=== PATIENT | female | born 1990 | race Caucasian/White ===

== ENCOUNTER 2016-08-21 17:04 | Emergency (ER) | payer OTHER ==
[~2016-08-21] VITALS: Ht 162.6 cm; Wt 97.6 kg
[~2016-08-21 17:04] MED LIST: AMOXICILLIN500 M1 PO; AMOXICILLIN500 MG PO; AMOXICILLIN875 MG PO; ATARAX,VISTARIL25 MG PO; BACTRIM,SEPT1 TABLET PO; BENADRYL50 MG PO; CHROMAGEN,1 CAPSULE PO; CIPRO500 MG PO; CITRATE OF MAG296 ML PO; CLINDAMYCIN HC300 MG PO; CLONAZEPAM0.5 MG PO; DILAUDID2 MG PO; DOLOPHINE HCL10 MG PO; Dilaudid PO; FERATE240 M1 PO; FLAGYL500 MG PO; FLEXERIL10 MG PO; FLINTSTONES M100 MCG PO; FLONASE16 G1 BOTH NARES; HYDROCODON-ACE1 EAC7 PO; HYDROXYZINE HCL50 MG PO; IBUPROFEN600 MG PO; IBUPROFEN800 MG PO; IRON325 M1 PO; KLONOPIN0.5 M1 PO; LORCET 5-325 M1 EACH PO; METHADONE HCL40 MG PO; METHADONE10 MG PO; METHADOSE10 MG/1 ML PO; METHADOSE40 MG PO; METOPROLOL SUCC25 MG PO; METOPROLOL TART25 MG PO; MIRALAX17 GM PO; MOTRIN400 MG PO; MOTRIN600 MG PO; MOTRIN800 MG PO; Motrin PO; NAPROSYN500 MG PO; ONDANSETRON ODT4 MG PO; PAXIL CR25 MG PO; PAXIL20 MG PO; PEN-VEE K,VEET500 MG PO; PEPCID20 MG PO; PERCOCET 10/1 TABLET PO; PERCOCET 5/31 TABLET PO; PREDNISONE20 MG; PREDNISONE50 MG PO; PRENATAL VITAM1 EAC1 PO; PYRIDIUM200 MG PO; TESSALON PERLE100 MG PO; TOPROL XL100 MG PO; TOPROL XL25 MG PO; TOPROL XL50 MG PO; TUMS500 MG PO; TYLENOL W/COD1 COMBO PO; ULTRAM50 MG PO; VALIUM2 MG PO; VANCOCIN HCL125 MG PO; VENTOLIN HFA18 GM IH; VICODIN,LORT1 TABLET PO; ZITHROMAX Z-PA250 MG PO; ZITHROMAX500 MG PO; ZOFRAN ODT4 MG PO; ZOFRAN4 MG PO; ZYRTEC10 M2 PO; [UNRECOGNIZED DRUG - OTHER] PO
[2016-08-21 18:28] LABS: CHLORIDE 105 mEq/L (99-109); POTASSIUM 3.7 mEq/L (3.7-5.4); SODIUM 142 mEq/L (136-147)
[2016-08-21 18:30] LABS: ADD MIUA? YES; BILIRUBIN NEGATIVE; BLOOD TRACE; COLOR DK YELLOW ((YELLOW)); GLUCOSE (STRIP) NEGATIVE; KETONES NEGATIVE; LEUKOCYTES NEGATIVE; NITRITE NEGATIVE; PH, URINE 5.5 (5-8); PROTEIN (STRIP) NEGATIVE; SPECIFIC GRAVITY 1.026 (1.000-1.030)
[2016-08-21 18:31] LABS: GLUCOSE 95 mg/dL (70-99)
[2016-08-21 18:32] LABS: ANION GAP 8 MEQ/L (2-14); TOTAL BILIRUBIN 0.5 mg/dL (0.0-1.0)
[2016-08-21 18:34] LABS: ALKALINE PHOSPHATASE 88 IU/L (3-129); GFR ESTIMATE (CALCULATED) > 59 mL/min/
[2016-08-21 18:35] LABS: UREA NITROGEN (BUN) 5 mg/dL (9-23)
[2016-08-21 18:36] LABS: HEMATOCRIT 34.7 % (36.0-46.0); MCH 25.8 PG (29.0-34.0); MCHC 33.1 G/DL (30.0-36.0); MEAN PLAT.VOLUME 10.5 uM^3 (9.5-12.4); PLATELET COUNT 132 K/uL (156-360); RBC DIS.WIDTH-CV 13.8 % (11.8-14.6); RBC DIS.WIDTH-SD 39.4 % (39-53); RED BLOOD COUNT 4.45 M/uL (3.80-5.20); WHITE BLOOD COUNT 4.4 K/uL (4.1-10.2)
[2016-08-21 18:48] LABS: QUANTITATIVE HCG < 4.0 MIU/ML
[2016-08-21 18:53] LABS: BACTERIA RARE /HPF; CASTS NONE SEEN /LPF; CRYSTALS NONE SEEN; EPITHELIAL CELLS 1+ /HPF; MUCUS NONE SEEN /LPF; RED BLOOD CELLS RARE /HPF (0-5); UCUL ADDED? NO; WHITE BLOOD CELLS NONE SEEN /HPF (0-5)
[2016-08-21 20:46] VITALS: BP 113/71
== END 2016-08-21 20:50 | disposition home or self-care (01) ==
LOC: EME 17:04
DX: R10.30 Lower abdominal pain, unspecified (principal); K59.00 Constipation, unspecified; Z88.6 Allergy status to analgesic agent; Z88.1 Allergy status to other antibiotic agents
CPT/HCPCS: 74020; 80053; 81003; 84702; 85027; 99281; 99285

== ENCOUNTER 2016-10-09 11:23 | Emergency (ER) | payer OTHER ==
[~2016-10-09] VITALS: Ht 162.6 cm; Wt 98.1 kg
[2016-10-09 12:49] LABS: ADD MIUA? NO; BILIRUBIN NEGATIVE; BLOOD NEGATIVE; COLOR YELLOW ((YELLOW)); GLUCOSE (STRIP) NEGATIVE; KETONES NEGATIVE; LEUKOCYTES NEGATIVE; NITRITE NEGATIVE; PROTEIN (STRIP) 30; SPECIFIC GRAVITY 1.024 (1.000-1.030); UCUL ADDED? NO
[2016-10-09 12:56] LABS: HEMATOCRIT 35.4 % (36.0-46.0); MCH 25.6 PG (29.0-34.0); MCHC 32.8 G/DL (30.0-36.0); MEAN PLAT.VOLUME 9.6 uM^3 (9.5-12.4); PLATELET COUNT 201 K/uL (156-360); RBC DIS.WIDTH-CV 13.4 % (11.8-14.6); RBC DIS.WIDTH-SD 37.3 % (39-53); RED BLOOD COUNT 4.54 M/uL (3.80-5.20); WHITE BLOOD COUNT 6.4 K/uL (4.1-10.2)
[2016-10-09 13:06] LABS: CHLORIDE 105 mEq/L (99-109); POTASSIUM 3.8 mEq/L (3.7-5.4); SODIUM 138 mEq/L (136-147)
[2016-10-09 13:08] LABS: GLUCOSE 86 mg/dL (70-99)
[2016-10-09 13:09] LABS: ANION GAP 9 MEQ/L (2-14)
[2016-10-09 13:10] LABS: TOTAL BILIRUBIN 0.4 mg/dL (0.0-1.0)
[2016-10-09 13:11] LABS: ALKALINE PHOSPHATASE 81 IU/L (3-129)
[2016-10-09 13:12] LABS: GFR ESTIMATE (CALCULATED) > 59 mL/min/
[2016-10-09 13:13] LABS: UREA NITROGEN (BUN) 5 mg/dL (9-23)
[2016-10-09 13:26] LABS: QUANTITATIVE HCG < 4.0 MIU/ML
[2016-10-09 14:19] VITALS: BP 120/80
== END 2016-10-09 14:19 | disposition home or self-care (01) ==
LOC: EME 11:23
DX: R10.9 Unspecified abdominal pain (principal); K21.9 Gastro-esophageal reflux disease without esophagitis; Z90.710 Acquired absence of both cervix and uterus
CPT/HCPCS: 80053; 81003; 84702; 85027; 99281; 99283

== ENCOUNTER 2016-11-27 15:26 | Emergency (ER) | payer OTHER ==
[~2016-11-27] VITALS: Ht 162.6 cm; Wt 100.2 kg
[2016-11-27] MEDS ORDERED: AUGMENTIN875 MG PO (20:23)
[2016-11-27] MEDS ORDERED: FLONASE16 G1 BOTH NARES (20:23)
[2016-11-27 20:33] VITALS: BP 111/63
== END 2016-11-27 20:36 | disposition home or self-care (01) ==
LOC: EME 15:26
DX: J01.90 Acute sinusitis, unspecified (principal); R51 Headache; Z88.6 Allergy status to analgesic agent
CPT/HCPCS: 70450; 99281; 99283

== ENCOUNTER 2017-01-06 03:56 | Emergency (ER) | payer OTHER ==
[~2017-01-06] VITALS: Ht 162.6 cm; Wt 97.7 kg
[~2017-01-06 03:56] MED LIST changes: +AUGMENTIN875 MG PO
[2017-01-06 05:28] LABS: EOSINOPHIL (%) 5.7 % (0-5); EOSINOPHIL COUNT 0.3 K/uL (0-0.3); HEMATOCRIT 35.9 % (36.0-46.0); INSTRUMENT ABS NEUTROPHIL CT 2.3 K/uL; LYMPHOCYTE COUNT 1.5 K/uL (1.0-2.8); MCH 26.6 PG (29.0-34.0); MCHC 33.4 G/DL (30.0-36.0); MCV 79.6 FL (83-99); MEAN PLAT.VOLUME 10.4 uM^3 (9.5-12.4); MONOCYTE COUNT 0.3 K/uL (0-0.8); NEUTROPHIL (%) 52.3 % (45-76); NEUTROPHIL COUNT 2.3 K/uL (1.8-6.4); PLATELET COUNT 146 K/uL (156-360); RBC DIS.WIDTH-CV 12.9 % (11.8-14.6); RBC DIS.WIDTH-SD 36.2 % (39-53); RED BLOOD COUNT 4.51 M/uL (3.80-5.20); WHITE BLOOD COUNT 4.4 K/uL (4.1-10.2)
[2017-01-06 05:38] LABS: CHLORIDE 103 mEq/L (99-109); POTASSIUM 3.8 mEq/L (3.7-5.4); SODIUM 138 mEq/L (136-147)
[2017-01-06 05:40] LABS: GLUCOSE 92 mg/dL (70-99)
[2017-01-06 05:42] LABS: ANION GAP 7 MEQ/L (2-14); TOTAL BILIRUBIN 0.6 mg/dL (0.0-1.0)
[2017-01-06 05:44] LABS: ALKALINE PHOSPHATASE 92 IU/L (3-129); GFR ESTIMATE (CALCULATED) > 59 mL/min/
[2017-01-06 05:45] LABS: UREA NITROGEN (BUN) 9 mg/dL (9-23)
[2017-01-06 07:14] VITALS: BP 113/69
== END 2017-01-06 07:15 | disposition home or self-care (01) ==
LOC: EME → EDBD 03:56 → EME 07:15
PROVIDERS: Emergency Medicine
DX: K59.00 Constipation, unspecified (principal); R10.30 Lower abdominal pain, unspecified; M79.7 Fibromyalgia; K21.9 Gastro-esophageal reflux disease without esophagitis; F90.9 Attention-deficit hyperactivity disorder, unspecified type
CPT/HCPCS: 74176; 80053; 85025; 99281; 99284

== ENCOUNTER 2017-02-27 03:23 | Emergency (ER) | payer OTHER ==
[~2017-02-27] VITALS: Ht 162.6 cm; Wt 97.8 kg
[2017-02-27] MEDS ORDERED: PREPARATION H C51 GM PR (04:17)
[2017-02-27] MEDS ORDERED: COLACE100 MG PO (04:17)
[2017-02-27 04:53] VITALS: BP 117/79
== END 2017-02-27 04:53 | disposition home or self-care (01) ==
LOC: EXP 03:23 → EME 03:23 → EXP 04:53
DX: K60.0 Acute anal fissure (principal); K59.00 Constipation, unspecified; Z90.49 Acquired absence of other specified parts of digestive tract; Z90.710 Acquired absence of both cervix and uterus
CPT/HCPCS: 99281; 99283

== ENCOUNTER 2017-03-18 17:43 | Emergency (ER) | payer OTHER ==
[~2017-03-18] VITALS: Ht 162.6 cm; Wt 97.8 kg
[~2017-03-18 17:43] MED LIST changes: +COLACE100 MG PO; +PREPARATION H C51 GM PR
[2017-03-18 18:39] LABS: HEMATOCRIT 34.9 % (36.0-46.0); MCH 27.1 PG (29.0-34.0); MCHC 33.5 G/DL (30.0-36.0); MCV 80.8 FL (83-99); MEAN PLAT.VOLUME 10.3 uM^3 (9.5-12.4); PLATELET COUNT 136 K/uL (156-360); RBC DIS.WIDTH-CV 12.9 % (11.8-14.6); RBC DIS.WIDTH-SD 37.4 % (39-53); RED BLOOD COUNT 4.32 M/uL (3.80-5.20)
[2017-03-18 18:43] LABS: ADD MIUA? YES; BILIRUBIN NEGATIVE; BLOOD SMALL; COLOR YELLOW ((YELLOW)); GLUCOSE (STRIP) NEGATIVE; KETONES NEGATIVE; LEUKOCYTES NEGATIVE; NITRITE NEGATIVE; PROTEIN (STRIP) NEGATIVE; SPECIFIC GRAVITY 1.015 (1.000-1.030)
[2017-03-18 18:51] LABS: CHLORIDE 107 mEq/L (99-109); POTASSIUM 3.7 mEq/L (3.7-5.4); SODIUM 143 mEq/L (136-147)
[2017-03-18 18:53] LABS: GLUCOSE 83 mg/dL (70-99)
[2017-03-18 18:53] LABS: BACTERIA NONE SEEN /HPF; EPITHELIAL CELLS RARE /HPF; HYALINE CASTS 0-5 /LPF; MUCUS 2+ /LPF; RED BLOOD CELLS 0-5 /HPF (0-5); UCUL ADDED? NO; WHITE BLOOD CELLS 0-5 /HPF (0-5)
[2017-03-18 18:54] LABS: ANION GAP 7 MEQ/L (2-14)
[2017-03-18 18:55] LABS: TOTAL BILIRUBIN 0.5 mg/dL (0.0-1.0)
[2017-03-18 18:56] LABS: ALKALINE PHOSPHATASE 100 IU/L (3-129)
[2017-03-18 18:57] LABS: GFR ESTIMATE (CALCULATED) > 59 mL/min/
[2017-03-18 18:58] LABS: UREA NITROGEN (BUN) 5 mg/dL (9-23)
[2017-03-18 19:05] LABS: QUANTITATIVE HCG < 4.0 MIU/ML
[2017-03-18] MEDS ORDERED: MIRALAX17 GM PO (20:18)
[2017-03-18 20:51] VITALS: BP 123/67
== END 2017-03-18 20:52 | disposition home or self-care (01) ==
LOC: EME 17:43
DX: K59.00 Constipation, unspecified (principal); R10.31 Right lower quadrant pain; K21.9 Gastro-esophageal reflux disease without esophagitis
CPT/HCPCS: 74176; 80053; 81003; 84702; 85027; 99281; 99284

== ENCOUNTER 2017-04-14 23:58 | Emergency (ER) | payer OTHER ==
[~2017-04-14] VITALS: Ht 162.6 cm; Wt 98.4 kg
[2017-04-15 00:33] LABS: HEMATOCRIT 36.4 % (36.0-46.0); MCH 26.9 PG (29.0-34.0); MCHC 33.2 G/DL (30.0-36.0); MCV 80.9 FL (83-99); MEAN PLAT.VOLUME 9.8 uM^3 (9.5-12.4); PLATELET COUNT 137 K/uL (156-360); RBC DIS.WIDTH-SD 37.9 % (39-53); WHITE BLOOD COUNT 5.6 K/uL (4.1-10.2)
[2017-04-15 00:41] LABS: CHLORIDE 108 mEq/L (99-109); POTASSIUM 4.2 mEq/L (3.7-5.4); SODIUM 141 mEq/L (136-147)
[2017-04-15 00:43] LABS: GLUCOSE 103 mg/dL (70-99)
[2017-04-15 00:44] LABS: ANION GAP 7 MEQ/L (2-14)
[2017-04-15 00:45] LABS: TOTAL BILIRUBIN 0.6 mg/dL (0.0-1.0)
[2017-04-15 00:46] LABS: ALKALINE PHOSPHATASE 93 IU/L (3-129)
[2017-04-15 00:47] LABS: GFR ESTIMATE (CALCULATED) > 59 mL/min/
[2017-04-15 00:48] LABS: UREA NITROGEN (BUN) 6 mg/dL (9-23)
[2017-04-15 00:50] LABS: LIPASE 5 U/L (1.0-51.0)
[2017-04-15 00:58] LABS: QUANTITATIVE HCG < 4.0 MIU/ML
[2017-04-15 01:07] LABS: ADD MIUA? YES; BILIRUBIN NEGATIVE; BLOOD NEGATIVE; COLOR YELLOW ((YELLOW)); GLUCOSE (STRIP) NEGATIVE; KETONES NEGATIVE; LEUKOCYTES TRACE; NITRITE NEGATIVE; PROTEIN (STRIP) NEGATIVE; SPECIFIC GRAVITY 1.024 (1.000-1.030)
[2017-04-15 01:14] LABS: BACTERIA 1+ /HPF; EPITHELIAL CELLS 2+ /HPF; MUCUS 2+ /LPF; UCUL ADDED? NO; WHITE BLOOD CELLS 0-5 /HPF (0-5)
[2017-04-15 02:09] VITALS: BP 114/80
== END 2017-04-15 02:10 | disposition home or self-care (01) ==
LOC: EME → EDBD 23:58 → EME 23:58
PROVIDERS: Emergency Medicine
DX: K52.9 Noninfective gastroenteritis and colitis, unspecified (principal); R10.9 Unspecified abdominal pain; F32.9 Major depressive disorder, single episode, unspecified; M79.7 Fibromyalgia; F41.9 Anxiety disorder, unspecified; Z90.710 Acquired absence of both cervix and uterus; Z88.8 Allergy status to other drugs, medicaments and biological substances
CPT/HCPCS: 80053; 81003; 83690; 84702; 85027; 99281; 99285; J7030

== ENCOUNTER → 2017-04-24 14:05 | Emergency (ER) | payer OTHER ==
[~2017-04-24] VITALS: Ht 162.6 cm; Wt 97.3 kg
[2017-04-24 14:46] VITALS: BP 106/67
== END | disposition left against medical advice (07) ==
LOC: EME 14:05
DX: R51 Headache (principal); R42 Dizziness and giddiness; R22.0 Localized swelling, mass and lump, head; Z53.21 Procedure and treatment not carried out due to patient leaving prior to being seen by health care provider

== ENCOUNTER 2017-05-02 10:27 | Emergency (ER) | payer OTHER ==
[~2017-05-02] VITALS: Ht 162.6 cm; Wt 98.8 kg
[2017-05-02] MEDS ORDERED: MOTRIN800 MG PO (11:14)
[2017-05-02] MEDS ORDERED: PEN-VEE K,VEET500 MG PO (11:14)
[2017-05-02 11:23] VITALS: BP 127/76
== END 2017-05-02 11:23 | disposition home or self-care (01) ==
LOC: EME 10:27
DX: K02.9 Dental caries, unspecified (principal); K03.81 Cracked tooth
CPT/HCPCS: 99281; 99284

== ENCOUNTER 2017-06-21 05:35 | Emergency (ER) | payer OTHER ==
[~2017-06-21] VITALS: Ht 162.6 cm; Wt 96.7 kg
[2017-06-21] MEDS ORDERED: DOXYCYCLINE HY100 MG PO (06:42)
[2017-06-21 06:50] VITALS: BP 120/69
== END 2017-06-21 07:00 | disposition home or self-care (01) ==
LOC: EME 05:35
DX: H93.8X1 Other specified disorders of right ear (principal); F32.9 Major depressive disorder, single episode, unspecified; F41.9 Anxiety disorder, unspecified; Z90.710 Acquired absence of both cervix and uterus; Z90.49 Acquired absence of other specified parts of digestive tract; Z88.5 Allergy status to narcotic agent; Z88.8 Allergy status to other drugs, medicaments and biological substances
CPT/HCPCS: 99281; 99283

== ENCOUNTER 2017-07-17 11:10 | Emergency (ER) | payer OTHER ==
[~2017-07-17] VITALS: Ht 162.6 cm; Wt 97.4 kg
[~2017-07-17 11:10] MED LIST changes: +DOXYCYCLINE HY100 MG PO
[2017-07-17] MEDS ORDERED: LIDODERM 5% P1 PATCH TD (12:35)
[2017-07-17] MEDS ORDERED: NAPROXEN500 MG PO (12:35)
[2017-07-17] MEDS ORDERED: FLEXERIL10 MG PO (12:37)
[2017-07-17 12:49] VITALS: BP 118/74
== END 2017-07-17 12:50 | disposition home or self-care (01) ==
LOC: EME 11:10
DX: M54.42 Lumbago with sciatica, left side (principal); Z79.891 Long term (current) use of opiate analgesic
CPT/HCPCS: 99281; 99283

== ENCOUNTER 2017-12-03 10:17 | Emergency (ER) | payer OTHER ==
[~2017-12-03] VITALS: Ht 162.6 cm; Wt 96.4 kg
[~2017-12-03 10:17] MED LIST changes: +LIDODERM 5% P1 PATCH TD; +NAPROXEN500 MG PO
[2017-12-03] MEDS ORDERED: AUGMENTIN875 MG PO (12:02)
[2017-12-03 12:11] VITALS: BP 115/83
== END 2017-12-03 12:12 | disposition home or self-care (01) ==
LOC: EME 10:17
DX: J34.0 Abscess, furuncle and carbuncle of nose (principal); F41.9 Anxiety disorder, unspecified; F32.9 Major depressive disorder, single episode, unspecified; M79.7 Fibromyalgia; F41.0 Panic disorder [episodic paroxysmal anxiety]; Z88.5 Allergy status to narcotic agent; Z88.8 Allergy status to other drugs, medicaments and biological substances
CPT/HCPCS: 99281; 99284

== ENCOUNTER 2017-12-11 12:26 | Emergency (ER) | payer OTHER ==
[~2017-12-11] VITALS: Ht 162.6 cm; Wt 97.0 kg
[2017-12-11] MEDS ORDERED: DIFLUCAN150 MG PO (13:07)
[2017-12-11 13:21] VITALS: BP 119/80
== END 2017-12-11 13:22 | disposition home or self-care (01) ==
LOC: EME 12:26
DX: B37.3 Candidiasis of vulva and vagina (principal)
CPT/HCPCS: 99281; 99284